=== PATIENT | female | born 1985 | race African-American/Black ===

== ENCOUNTER 2018-02-22 19:14 | Emergency (ER) | payer MEDICARE ==
[~2018-02-22] VITALS: Ht 157.5 cm; Wt 84.2 kg
[~2018-02-22 19:14] MED LIST: ELAVIL; TOPI25CA
[2018-02-22] MEDS ORDERED: SILVER SULFADIAZINE 1% CREAM 25GM TOP ONE (20:45)
[2018-02-22] MEDS ORDERED: ACETAMINOPHEN 325MG TABLET PO ONE (20:45)
[2018-02-22 21:34] VITALS: BP 128/85
== END 2018-02-22 21:37 | disposition home or self-care (01) ==
LOC: ER 20:34
DX: T21.21XA Burn of second degree of chest wall, initial encounter (principal); X13.1XXA Other contact with steam and other hot vapors, initial encounter; Y93.G3 Activity, cooking and baking; Y92.010 Kitchen of single-family (private) house as the place of occurrence of the external cause; I10 Essential (primary) hypertension; F17.210 Nicotine dependence, cigarettes, uncomplicated
CPT/HCPCS: 16020; 99284; X7700